=== PATIENT | male | born 1990 | race Caucasian/White ===

== ENCOUNTER 2024-01-04 07:43 | Emergency (ER) | payer MEDICAID, OTHER ==
[2024-01-04 08:16] LABS: BASOPHILS ABSOLUTE AUTO 0.06 K/uL (0.00-0.10); BASOPHILS PERCENT AUTO 0.5 % (0.1-1.3); EOSINOPHILS ABSOLUTE AUTO 0.92 K/uL (0.00-0.40); EOSINOPHILS PERCENT AUTO 7.4 % (0.0-5.4); HEMOGLOBIN 15.2 g/dL (12.9-16.9); IMMATURE GRAN ABSOLUTE AUTO 0.04 K/uL (0.00-0.23); IMMATURE GRAN PERCENT AUTO 0.3 % (0.0-0.7); LYMPHOCYTES ABSOLUTE AUTO 2.76 K/uL (0.8-3.3); LYMPHOCYTES PERCENT AUTO 22.3 % (11.4-47.7); MEAN CORPUSCULAR HEMOGLOBIN 29.4 pg (31.6-35.5); MEAN CORPUSCULAR HGB CONC 34.5 g/dL (31.6-35.5); MEAN CORPUSCULAR VOLUME 85.1 fL (81.4-99.0); MONOCYTES ABSOLUTE AUTO 1.14 K/uL (0.20-0.90); MONOCYTES PERCENT AUTO 9.2 % (3.3-12.6); NEUTROPHILS ABSOLUTE AUTO 7.45 K/uL (1.0-7.6); NEUTROPHILS PERCENT AUTO 60.3 % (40.0-78.1); PLATELET COUNT,PLT 239 K/uL (130-375); RED BLOOD CELL COUNT 5.17 M/uL (4.14-5.76); WHITE BLOOD CELL COUNT,WBC 12.4 K/uL (3.2-11.0)
[2024-01-04 08:32] LABS: CALCIUM 9.2 mg/dL (8.5-10.1); CREATININE 0.9 mg/dL (0.8-1.3); EST CRCL DRUG DOSING (CG) 127.19 mL/min; POTASSIUM,K 3.8 mmol/L (3.6-5.2)
[2024-01-04 08:33] LABS: ANION GAP 10.8 mmol/L (5.0-14.0)
[2024-01-04 08:55] LABS: CORONAVIRUS COVID-19 NAA NEGATIVE (NEGATIVE); INFLUENZA A NAA NEGATIVE (NEGATIVE); INFLUENZA B NAA NEGATIVE (NEGATIVE); RESPIRATORY SYNCYTIAL VIR NAA NEGATIVE (NEGATIVE)
== END 2024-01-04 09:52 | disposition home or self-care (01) ==
LOC: JP.ED 07:43
DX: J06.9 Acute upper respiratory infection, unspecified (principal); R05.9 Cough, unspecified; F17.210 Nicotine dependence, cigarettes, uncomplicated
CPT/HCPCS: 0241U; 36415; 71046; 80048; 85025; 99283

== ENCOUNTER 2024-03-13 20:39 | Emergency (ER) | payer SELFPAY | END 2024-03-13 21:40 | disposition home or self-care (01) | LOC: JP.ED 20:39 | DX: S56.911A Strain of unspecified muscles, fascia and tendons at forearm level, right arm, initial encounter (principal); F17.210 Nicotine dependence, cigarettes, uncomplicated; X50.0XXA Overexertion from strenuous movement or load, initial encounter | CPT/HCPCS: 99283 ==

== ENCOUNTER 2025-05-07 22:52 | Emergency (ER) | payer MEDICAID | END 2025-05-08 00:01 | disposition left against medical advice (07) | LOC: JP.ED 22:52 | DX: Z53.21 Procedure and treatment not carried out due to patient leaving prior to being seen by health care provider (principal) ==

== ENCOUNTER 2025-08-01 00:34 | Emergency (ER) | payer MEDICAID | END 2025-08-01 01:47 | disposition home or self-care (01) | LOC: JP.ED 00:34 | DX: S60.222A Contusion of left hand, initial encounter (principal); Y04.8XXA Assault by other bodily force, initial encounter | CPT/HCPCS: 73130-26-LT; 73130-LT; 99283 ==